=== PATIENT | female | born 1980 | race Hispanic/Latino ===

== ENCOUNTER 2017-11-19 14:40 | Emergency (ER) | payer MEDICAID, OTHER ==
[2017-11-19] MEDS ORDERED: ONDANSETRON HCL 4 MG/2 ML VIAL ONE (14:47)
[2017-11-19] MEDS ORDERED: SODIUM CHLORIDE 0.9% 1000ML 1,000 ML IV ONE (14:52)
[2017-11-19] MEDS ORDERED: KETOROLAC TROMETHAMINE 30MG/ML ONE (14:52)
[2017-11-19] MEDS ORDERED: IOPAMIDOL-370 100 ML VIAL IV ONE (15:09)
[2017-11-19] MEDS ORDERED: DIAZEPAM 2 MG TAB ONE (17:06)
== END 2017-11-19 17:18 | disposition home or self-care (01) ==
LOC: EDH 14:40
DX: S13.4XXA Sprain of ligaments of cervical spine, initial encounter (principal); S33.5XXA Sprain of ligaments of lumbar spine, initial encounter; Z98.51 Tubal ligation status; Z87.891 Personal history of nicotine dependence; V49.49XA Driver injured in collision with other motor vehicles in traffic accident, initial encounter; Y93.89 Activity, other specified; Y92.89 Other specified places as the place of occurrence of the external cause; Y99.8 Other external cause status
CPT/HCPCS: 70450; 71260; 72125; 74177; 96374; 96375; 99284; J1885; J2405; J7030; Q9967